=== PATIENT | female | born 1990 | race Caucasian/White ===

== ENCOUNTER 2017-12-06 13:28 | Inpatient (IN) ==
--- NOTE | 2017-12-06 12:27 | OB/GYN History & Physical ---
Date of Encounter: 12/06/17 Time of Encounter: 12:23 Assessment and Plan (1) 38 weeks gestation of Current visit: Yes Status: Acute admitted for observation if patient continues to make change will admit for delivery History of Present Illness Chief complaint: low back pain and pressure HPI: Ms. Carrera is a 27 year old female @ [id number] presents to labor and delivery with complaints of increase in low back pain and vaginal pressure. Patient reports some occasional abdominal pain with increase of mucus discharge. Patient reports +FM. Denies LOF or VB. Patient reports +FM. Blood type: A+ Rubella: Immune Hep B: Nonreactive Varicella: Positive GBS: Negative Past Med Surg Social Fam HX - Past Medical History Source: patient Medical history: no medical history Psychiatric history: no psych history - Past Surgical History Surgical History: no surgical history - Social History Smoking Status: Never smoker Smokeless Tobacco Status: No Alcohol use: none Occupational status: employed Current living situation: Home - Independent Activity Level: Independent ambulation Recent Out of Country Travel Within the Last 8 Weeks: No Exposure or Possible Exposure to Illness During Travel: No Obstetrical History - Pregnancies : 2 Para: 0 Term: 0 : 0 Ab's: 1 Livin Medications and Allergies Formula Tablet 1 tab PO DAILY 12/06/17 [History] 3 Allergy/AdvReac Type Severity Reaction Status Date / Time Sulfa (Sulfonamide AdvReac Swelling Verified 07/20/15 16:41 Antibiotics) of Lip/Tongue/Throat Review of System OB - Constitutional Constitutional ROS IM: no chills, no fatigue, no fever(s), no headache(s) - Cardiovascular Cardiovascular: no chest pain, no edema, no leg edema, no palpitations - Respiratory Respiratory: no cough - Gastrointestinal Gastrointestinal: no abdominal pain, no diarrhea, no heartburn, no nausea, no vomiting - Genitourinary Genitourinary: no abnormal vaginal bleeding, no dysuria, no flank pain, no urinary frequency, no urinary incontinence, no vaginal odor, no vaginal pruritis Exam - Constitutional Constitutional: well developed, well nourished, no acute distress, average body habitus - HEENT HEENT: Normocephaly, Mucus Membranes Moist - Neck Neck exam: full ROM, supple - Lungs Respiratory exam: CTAB - Cardiovascular Cardiovascular exam: RRR, +S1, +S2 - Abdomen Abdomen: Present: bowel sounds normal, gravid, non tender - Extremities Extremities exam: full ROM, normal capillary refill, normal inspection Deep Tendon Reflex Grade: 2+ Normal - Vagina Vagina: Present: normal moisture - Cervix Dilation: 6 Effacement: 90 Station: 0 - Uterus Uterus exam: Present: normal size, normal contour - Anus/Rectum Anus/Rectum: Present: normal perianal skin (FHR 145 bpm moderate variabiity + 15x15 accels no decels noted. Occasional contractions noted. Cat. 1 tracing.) Results All other labs normal. - VTE Reasons for not Prescribing Prophylaxis: Treatment not Indicated - Low risk for VTE
[~2017-12-06 13:28] MED LIST: *HR* Nalbuphine 10 MG/ML AMPUL IVP PRN; Famotidine 20 MG/2 ML VIAL IVP PRN; Naloxone 0.4 MG/ML INJ IVP PRN; Ondansetron 4 MG/2 ML VIAL IVP PRN
[2017-12-06] MEDS ORDERED: Ringers Solution, Lactated 1,000 ML IVC SCH (13:30)
[2017-12-06 13:55] LABS: Amphetamine Screen,Urine Negative ng/mL (Cutoff=1000); Barbiturate Screen,Urine Negative ng/mL (Cutoff=200); Benzodiazepines Screen,Urine Negative ng/mL (Cutoff=200); Cannabinoid Screen,Urine Negative ng/mL (Cutoff = 50); Cocaine Screen,Urine Negative ng/mL (Cutoff= 300); Opiate Screen,Urine Negative ng/mL (Cutoff=300); Phencyclidine Screen,Urine Negative ng/mL (Cutoff=25)
[2017-12-06 14:01] LABS: Basophils % 0.3 %; Eosinophils # 0.1 K/mcL (0.0-0.6); Eosinophils % 0.7 %; Hematocrit 37.1 % (35.3-44.9); Hemoglobin 12.2 g/dL (11.5-15.4); Immature Granulocytes % 0.7 % (0-4); Lymphocytes % 17.6 %; Mean Corpuscular HGB Conc 32.9 g/dL (31.6-35.5); Mean Corpuscular Hemoglobin 28.1 pg (28.0-33.3); Mean Corpuscular Volume 85.5 fL (83.0-100.0); Monocytes # 0.8 K/mcL (0.0-1.3); Neutrophils # 8.5 K/mcL (1.6-8.9); Platelet Count 191 K/mcL (140-400); Red Blood Count 4.34 M/mcL (3.82-4.97); Red Cell Distribution Width 14.4 % (11.5-14.5); Segmented Neutrophils % 73.7 %
--- NOTE | 2017-12-06 19:24 | OB Labor Progress Note ---
Date of Encounter: 12/06/17 Time of Encounter: 19:22 Labor Progress Note - Subjective Subjective: Patient doing well. Discussed POC with patient. Patient denies any questions or concerns. - Cervix Cervix: 7/95/0 - Heart Tones Heart Tones: 150 bpm moderate variability +15x15 accels no decels noted. - [place]: 3-3.5 min apart - Interventions Interventions: SVE, AROM moderate amount of clear fluid. Patient tolerated well. - Plan Plan: Continue labor management. anticipated
[2017-12-06] MEDS ORDERED: *HR* FentaNYL (PF) 100 MCG/2 ML VIAL EP ONE (21:01)
[2017-12-06] MEDS ORDERED: Bupivacaine-MPF 0.25% 10 ML VIAL EP ONE (21:01)
[2017-12-06] MEDS ORDERED: Lidocaine -MPF 1% 5 ML AMPUL ONE (21:03)
[2017-12-06] MEDS ORDERED: *HR* FentaNYL (PF) 100 MCG/2 ML VIAL ONE (21:03)
[2017-12-06] MEDS ORDERED: Bupivacaine-MPF 0.25% 10 ML VIAL ONE (21:03)
[2017-12-06] MEDS ORDERED: Epidural Premix (fent/bupiv) 110 ML EP ONE (21:08)
[2017-12-06] MEDS ORDERED: Epidural Premix (fent/bupiv) 110 ML EP SCH (21:15)
--- NOTE | 2017-12-06 21:38 | Anesthesia Evaluation PreOp ---
Date of Encounter: 12/06/17 Time of Encounter: 21:10 - Past History Planned Operation: AURELIA Cardiac History: Denies any Significant Hx Pulmonary History: Denies Any Significant HX SHERIFFS History: Denies Any Significant HX Other Medical History: Denies Any Significant HX Anesthesia History: No Prior Anesthetic Complications (never had any procedure requiring GA or NA; denies family h/o GA complications) : Yes Test: Positive Alcohol Use: none Drug use: none Medications and Allergies Formula Tablet 1 tab PO DAILY 12/06/17 [History] 3 Allergy/AdvReac Type Severity Reaction Status Date / Time Sulfa (Sulfonamide AdvReac Swelling Verified 07/20/15 16:41 Antibiotics) of Lip/Tongue/Throat - Meds/Allergy Pre-op Review Medications Reviewed: Yes Allergies Reviewed: Yes Beta Blockers on Current Med List: No Anesthesia Results - Labs 12/06/17 13:30 Anesthesia Exam 130/65, hr 98, RR 18 O2 Sat Height 1.7 m Height 1.7 m Weight 85.9 kg Weight 85.9 kg NPO (# of Hours): solids > 8hrs Pain Scale: 10 Pain Scale Used: [place] (Faces) - HEENT Pupil (Motor): Pupils equal Mallampati: II Teeth: Normal Oral Opening: Greater than 3 - SHERIFFS LOC: Oriented SHERIFFS Motor: Normal RUE, Normal LUE, Normal RLE, Normal LLE, Normal Face [place]IFF[place] Sensory: Normal: RUE, LUE, RLE, LLE, Face - Cardiac Rhythm: Regular Murmur: None - Pulmonary Breath Sounds: bilateral Clear Respiratory Effort: Symmetrical Anesthesia Assess/Plan ASA Score: 2 Modified Deloris Scale for Level of Consciousness: Anixous, agitated or restless Anesthetic Plan: Regional Autologous Blood: No Monitoring Plan: Standard Monitors Recovery Plan: Other
--- NOTE | 2017-12-06 21:42 | Anesthesia Procedures ---
Date of Encounter: 12/06/17 Time of Encounter: 21:39 Procedures: Anesthesia - Epidural/Spinal Patient ID/Chart reviewed: Yes Patient examined: Yes OB Eval: Gestational age: 38 weeks 4 days OB Eval: : 2 OB Eval: Hx Para: 0 OB Eval: Dilated at (cm): 6 OB Eval: Contractions: Non-stressed pattern Consent Obtained: Yes Supplemental Oxygen: None/Room Air Site Prep: Aseptic Technique, Sterile prep and drape, Povidone-Iodine 1% Patient position: upright Local Anesthetic: Lidocaine 1% Amount of Local Anesthetic used: 3 Touhy Needle Gauge: 18 Touhy Needle Depth (cm): 6 Catheter Depth at Skin (cm): 11 Test Dose (1.5% Lido + Epi): Volume given (mls): 5 Test Dose Result: Negative Loading Dose: 0.25% Marcaine (mls): 5 Loading Dose: Fentanyl (mcg): 100 Loading Dose Administered: Thru Catheter Infusion Rate (mls/hr): 14 (w/ demand bolus of 5mL q30min PRN) Catheter Secured in Place: Tegaderm, Tape Interspace Used: L3-L4 Loss of Resistance (LADONNA): Yes Blood: No CSF: No Paresthesia: No Procedure: successful on 1st attempt; patient tolerated procedure well; VSS Vitals + FHT's: please see Melissa STEVENSON's electronic records for VS entry
[2017-12-06] MEDS ORDERED: Oxytocin 20 units/ LR 1000 mL 20 UNIT/1,000 ML BAG IVC ONE (22:24)
--- NOTE | 2017-12-07 00:09 | OB/GYN Procedure Note ---
Delivery - Delivery Date: 12/06/17 Provider: Merary Nicholas Intrapartum events: none Delivery induction: none Delivery augmentation: rupture of membranes Delivery monitor: external FHT, external uterine Anesthesia: epidural Quantitated Blood Loss: 200 - Infant (s) Infant A Infant Delivery Date: 12/06/17 Infant Delivery Time: 23:33 Presentation: vertex Position: LIANE Route of delivery: Gender: Female Viability: Viable Pounds: 7 Ounces: 7 Weight Gram: 3365 kg at 1 minute: 8 at 5 mins: 9 Shoulder Dystocia: not encountered Placenta: spontaneous, uterine exploration Cord: 3 umbilical vessels - Repair Episiotomy: none Laceration Description: Perineal - 2nd Degree (repaired with 3-0 vicryl) - Complications Delivery complications: none - Disposition Mom disposition: stable in LDR [place] disposition: stable in LDR - Comments Comments: Called to LDR patient complete and +2. Patient was placed in stirrups and prepped for vaginal delivery. Under maternal effort patient spontaneously delivered a viable female infant over a 2nd degree perineal laceration. No nuchal, shoulder dystocia or meconium was encountered. Infant was placed on maternal abdomen. the 2nd degree laceration repair was started with 3-0 vicryl and finished with 4-0 vicryl. Patient tolerated well. Cord was clamped and cut after pulsations ceased. Placenta delivered spontaneously and intact. Uterus was explored along with vagina for another lacerations. No further repaired was needed. Pericare provided. All counts correct. Both mother and infant stable in LDR for 2 hour recovery.
[2017-12-07] MEDS ORDERED: Benzocaine/Menthol 56 GM AEROSOL SPRAY TP PRN (01:45)
[2017-12-07] MEDS ORDERED: Acetaminophen 325 MG TABLET PO PRN (01:45)
[2017-12-07] MEDS ORDERED: Oxytocin 20 units/ LR 1000 mL 20 UNIT/1,000 ML BAG IVC SCH (01:45)
[2017-12-07] MEDS ORDERED: Lanolin 7 G OINT...G. TP PRN (01:45)
[2017-12-07] MEDS ORDERED: *HR* HYDROcodone/Acet 5/325 mg TABLET PO PRN (01:45)
[2017-12-07] MEDS: Ibuprofen 600 MG TABLET PO PRN ×4 (03:17→22:18)
[2017-12-07] MEDS: Prenatal Vit/FA 1 EACH TABLET PO SCH (08:34)
--- NOTE | 2017-12-07 10:53 | OB/GYN Progress Note ---
Date of Encounter: 12/07/17 Time of Encounter: 10:49 - Assessment and Plan (1) Vaginal delivery Current Visit: Yes Status: Acute S/p Day #1 Continue routine PP care consult prn Consider discharge tomorrow Subjective - Subjective Interval history: Doing well. Voiding and ambulating without difficulty. Tolerating regular diet well. Lochia light and without clots. Mild abdominal cramping well controlled with Ibuprofen. nursing well this morning, although baby did have a period of "gagging" earlier. Baby does have a tongue tie which peds has evaluated. Patient states baby's father also had tongue tie and breast fed with no problems. Patient reports: appetite normal, voiding normally, pain well controlled, ambulating normally [place]: doing well, nursing well Objective - Latest Vital Signs Latest vital signs: Vital Signs Temp Pulse Resp BP Pulse Ox 12/07/17 07:58 97.9 F 96 14 115/76 98 12/07/17 04:25 98.7 F 94 20 124/69 94 12/07/17 03:20 98.7 F 94 20 115/67 99 12/07/17 02:30 98.3 F 115 16 124/79 98 Intake and Output 12/06/17 12/07/17 12/07/17 23:59 07:59 15:59 Output Total 275 / 275 400 / 400 Balance -275 / -275 -400 / -400 Output: Urine 75 / 75 400 / 400 Estimated Blood Loss 200 / 200 Other: Stool Characteristics Normal for Patient Weight 83.1 kg Patient Weight 12/07/17 23:59 Weight 83.1 kg - Exam Lungs: bilateral: normal Chest: Normal S1, Normal S2 Extremities: Present: normal Abdomen: Present: normal appearance, soft Uterus: Present: normal, firm. Absent: bogginess Uterus Position: 1 Finger Below Umbilicus, Midline - Labs Labs: Laboratory Results - last 24 hr 12/06/17 12/06/17 12:21 13:30 WBC 11.5 H RBC 4.34 Hgb 12.2 Hct 37.1 MCV 85.5 MCH 28.1 MCHC 32.9 RDW 14.4 Plt Count 191 MPV 14.0 H Immature Gran % 0.7 Seg Neutrophils % 73.7 Lymphocytes % 17.6 Monocytes % 7.0 Eosinophils % 0.7 Basophils % 0.3 Neutrophils # 8.5 Lymphocytes # 2.0 Monocytes # 0.8 Eosinophils # 0.1 Basophils # 0.0 Urine Opiates Screen Negative Ur Barbiturates Screen Negative Ur Phencyclidine Scrn Negative Ur Amphetamines Screen Negative U Benzodiazepines Scrn Negative Urine Cocaine Screen Negative U Marijuana (THC) Screen Negative
[2017-12-08 07:48] VITALS: BP 99/60
[2017-12-08] MEDS: Ibuprofen 600 MG TABLET PO PRN (08:13)
[2017-12-08] MEDS: Prenatal Vit/FA 1 EACH TABLET PO SCH (08:13)
--- NOTE | 2017-12-08 08:56 | Discharge Summary ---
Date of Encounter: 12/08/17 Time of Encounter: 08:54 - Discharge Diagnosis (1) Vaginal delivery Priority: Primary Status: Acute Comments: Meeting all PP milestones, pain well managed, tolerates regular diet, breast feeding, desires discharge. - Discharge Medications Prescriptions: Ibuprofen [Motrin] 600 mg PO Q6HR PRN #60 tablet PRN Reason: Cramping Docusate [Colace] 100 mg PO BID #60 capsule Home Medications: Acetaminophen [Tylenol] 650 mg PO Q6HR PRN tablet 12/08/17 [Rx] Docusate [Colace] 100 mg PO BID #60 capsule 12/08/17 [Rx] Hydrocortisone/Pramoxine [Epifoam] 1 appl TP TID bottle 12/08/17 [Rx] Ibuprofen [Motrin] 600 mg PO Q6HR PRN #60 tablet 12/08/17 [Rx] Lanolin [Lansinoh] 1 appl TP TID PRN oint...g. 12/08/17 [Rx] Mupirocin [Bactroban Oint] 1 appl TP BID tube 12/08/17 [Rx] Vit/FA 1 each PO DAILY tablet 12/08/17 [Rx] Allergies/Adverse Reactions: 3 Allergy/AdvReac Type Severity Reaction Status Date / Time Sulfa (Sulfonamide AdvReac Swelling Verified 07/20/15 16:41 Antibiotics) of Lip/Tongue/Throat Data Procedures and tests throughout hospitalization: Laboratory Tests 12/06/17 12/06/17 12:21 13:30 WBC 11.5 H RBC 4.34 Hgb 12.2 Hct 37.1 MCV 85.5 MCH 28.1 MCHC 32.9 RDW 14.4 Plt Count 191 MPV 14.0 H Immature Gran % 0.7 Seg Neutrophils % 73.7 Lymphocytes % 17.6 Monocytes % 7.0 Eosinophils % 0.7 Basophils % 0.3 Neutrophils # 8.5 Lymphocytes # 2.0 Monocytes # 0.8 Eosinophils # 0.1 Basophils # 0.0 Urine Opiates Screen Negative Ur Barbiturates Screen Negative Ur Phencyclidine Scrn Negative Ur Amphetamines Screen Negative U Benzodiazepines Scrn Negative Urine Cocaine Screen Negative U Marijuana (THC) Screen Negative Date of admission: 12/06/17 13:28 Consults: 12/07/17 01:45 Consult to Associate Broker [CONS] Routine Comment: Vaginal delivery, consult needed Discharging clinician: Rebeca Angeles Anticipated date of discharge: 12/08/17 - Patient Status Disposition: Home, Self-Care Condition: Good Functional capacity at discharge: independent ambulation Overall status at discharge: patient is back to baseline - Discharge Instructions Follow Up With: Merary Nicholas CNM [Non-Partnered Physician] - - Diet and Activity Activity: resume usual activities as tolerated Diet: regular diet Hospital Course Reason for admission: active labor, IUP at term Delivery: Episiotomy: none Laceration: 2nd degree Other procedures: none complications: none Discharge diagnosis: IUP at term delivered baby: female Hospital course: Delivery - Delivery Date: 12/06/17 Provider: Merary Nicholas Intrapartum events: none Delivery induction: none Delivery augmentation: rupture of membranes Delivery monitor: external FHT, external uterine Anesthesia: epidural Quantitated Blood Loss: 200 - Infant (s) Infant A Delivery Date: 12/06/17 Infant Delivery Time: 23:33 Presentation: vertex Position: LIANE Route of delivery: Gender: Female Viability: Viable Pounds: 7 Ounces: 7 Weight Gram: 3365 kg at 1 minute: 8 at 5 mins: 9 Shoulder Dystocia: not encountered Placenta: spontaneous, uterine exploration Cord: 3 umbilical vessels - Repair Episiotomy: none Laceration Description: Perineal - 2nd Degree (repaired with 3-0 vicryl) - Complications Delivery complications: none - Disposition Mom disposition: stable in PP and appropriate for discharge Time Attestation: Total time spent providing and/or coordinating discharge services: Time Spent: Less than 30 minutes Exam - Constitutional Vitals: Temp Pulse Resp BP Pulse Ox 98.1 F 72 16 99/60 99 12/08/17 07:47 12/08/17 07:47 12/08/17 07:47 12/08/17 07:47 12/07/17 22:12 General appearance IM: A&O X 3 - Respiratory Respiratory exam: Present: CTAB - Cardiovascular Cardiovascular exam IM: Present: RRR - GI/Abdominal GI/Abdominal exam IM: soft - Uterine Tone: Firm Uterus Position: 3 Fingers Below Umbilicus - Extremities Exam Extremities exam IM: Present: normal capillary refill, normal inspection - Neurological Exam Neurological exam: normal gait, oriented X3 - Psychiatric Additional comments: Reports good mood.
== END 2017-12-08 12:15 | disposition home or self-care (01) | DRG 774 ==
LOC: 1NENULAB → 1NENUOBS 12-07 01:44
PROVIDERS: ADMIT Advanced Practice Midwife; ATTEND Advanced Practice Midwife

== ENCOUNTER 2019-10-14 13:22 | Inpatient (IN) ==
[2019-10-14 11:58] LABS: Basophils % 0.4 %; Eosinophils % 0.4 %; Hematocrit 31.9 % (35.3-44.9); Hemoglobin 10.3 g/dL (11.5-15.4); Immature Granulocytes % 1.4 % (0-4); Lymphocytes # 1.8 K/mcL (0.6-4.6); Lymphocytes % 17.6 %; Mean Corpuscular HGB Conc 32.3 g/dL (31.6-35.5); Mean Corpuscular Hemoglobin 26.1 pg (28.0-33.3); Mean Platelet Volume 12.7 fL (9.4-12.4); Monocytes # 0.7 K/mcL (0.0-1.3); Monocytes % 6.6 %; Neutrophils # 7.6 K/mcL (1.6-8.9); Platelet Count 279 K/mcL (140-400); Red Blood Count 3.94 M/mcL (3.82-4.97); Red Cell Distribution Width 14.1 % (11.5-14.5); Segmented Neutrophils % 73.6 %; White Blood Count 10.3 K/mcL (4.3-11.1)
[~2019-10-14 13:22] MED LIST changes: -*HR* Nalbuphine 10 MG/ML AMPUL IVP PRN; +Metoclopramide 10 MG/2 ML VIAL IVP PRN
[2019-10-14] MEDS ORDERED: Ringers Solution, Lactated 1,000 ML IVC SCH (13:30)
[2019-10-14] MEDS ORDERED: Ropivacaine/PF 0.2% 20 ML VIAL EP ONE (16:43)
[2019-10-14] MEDS ORDERED: EPHEDrine 50 MG/ML VIAL IVP PRN (16:43)
[2019-10-14] MEDS ORDERED: Ropivacaine/PF 0.2% 20 ML VIAL ONE (16:45)
[2019-10-14] MEDS ORDERED: Epidural Premix (fent/bupiv) 110 ML EP SCH (16:45)
[2019-10-14] MEDS ORDERED: Epidural Premix (fent/bupiv) 110 ML EP ONE (16:47)
[2019-10-14] MEDS ORDERED: Oxytocin 20 units/ LR 1000 mL 20 UNIT/1,000 ML BAG IVC ONE (17:49)
[2019-10-14] MEDS ORDERED: Oxytocin 20 units/ LR 1000 mL 20 UNIT/1,000 ML BAG IVC SCH (21:31)
[2019-10-14] MEDS ORDERED: *HR* HYDROcodone/Acet 5/325 mg TABLET PO PRN (21:31)
[2019-10-14] MEDS ORDERED: Benzocaine/Menthol 56 GM AEROSOL SPRAY TP PRN (21:31)
[2019-10-14] MEDS ORDERED: Acetaminophen 325 MG TABLET PO PRN (21:31)
[2019-10-14] MEDS ORDERED: Hydrocortisone 1% OINT 28 GM TUBE TP PRN (21:31)
[2019-10-14] MEDS ORDERED: Lanolin 7 G OINT...G. TP PRN (21:31)
[2019-10-14] MEDS: Ibuprofen 600 MG TABLET PO PRN (22:59)
[2019-10-15] MEDS: Ibuprofen 600 MG TABLET PO PRN (04:52)
[2019-10-15 08:01] VITALS: BP 95/50
[2019-10-15] MEDS ORDERED: Prenatal Vit/FA 1 EACH TABLET PO SCH (09:00)
== END 2019-10-15 15:00 | disposition home or self-care (01) | DRG 807 ==
LOC: 1NENULAB → 1NENUOBS 19:35
PROVIDERS: ADMIT Advanced Practice Midwife; ATTEND Advanced Practice Midwife